=== PATIENT | female | born 1945 | race Caucasian/White ===

== ENCOUNTER → 2021-10-01 11:10 | Outpatient (CLI) | payer MEDICARE, OTHER, SELFPAY ==
[2021-10-01 15:04] LABS: COVID19 -Nasal RAPID Negative (Negative)
== END ==
PROVIDERS: PCP Family Medicine; Referring Provider Ophthalmology; Visit Provider Ophthalmology
DX: Z20.822 Contact with and (suspected) exposure to COVID-19 (principal)
CPT/HCPCS: 87635; C9803

== ENCOUNTER 2021-10-02 10:35 | Day surgery (SDC) | payer MEDICARE, OTHER, SELFPAY ==
[2021-10-02] MEDS: PROPARACAINE 0.5% OPHTH SOL 2 DROPS EYE-OP (10:57)
[2021-10-02] MEDS: CATARACT EYE COMPOUND (10 DROPS/SYRINGE) 3 DROPS EYE-OP (11:03)
[2021-10-02 11:05] VITALS: BP 150/86; PULSE 65; RESP 16; TEMP 35.9; O2SAT 98; BMI 21.9
--- NOTE | 2021-10-02 11:50 | SUR.OPER ---
Supine on eye stretcher, head on extension cradle secured with tape. Arms tucked at sides with blanket. Pillow under knees.
--- NOTE | 2021-10-02 12:01 | P.OP.PRE_ITS ---
Pre-operative Note Interval Note History & Physical reviewed/Exam performed by Physician: Yes Changes to H&P: No Addendum Addendum Note: There are no non surgical alternatives for the patients condition. Deteriora tion of the patients condition is expected without surgery. There is the possibility that delay of surgery will result in more complex future surgery.
--- NOTE | 2021-10-02 12:02 | PM.OP.1 ---
Operative Date/Time/Diagnoses Pre-op diagnosis: Nuclear cataract right eye Procedure & Clinicians Procedure: Cataract Surgery Same procedure as scheduled: Yes Surgeon: Lars Negrete Anesthesia Type: MAC +/- and Sedation Operative Notes Procedure in detail: Patient brought to the operating suite. Tetracaine drops placed in the right eye. Patient was prepped and draped in sterile manner. Wire lid speculum was placed in the eye. Betadine drops were placed on the eye. This was irrigated. Lidocaine jelly was placed on the eye. A paracentesis port was created with a side-port blade. 0.1 mL 1% preservative free lidocaine was injected into the anterior chamber. The anterior chamber was deepened with viscoelastic. 2.6 mm keratome was used to create a temporal clear corneal incision. Cystotome and Utrata forceps were used to create continuous tear capsulorrhexis. Balanced salt solution was used to hydro dissect the nucleus. The phacoemulsification handpiece was inserted and the nucleus was removed using the stop and chop technique. The irrigation aspiration handpiece was inserted and the remaining cortex was removed. Anterior chamber was deepened with viscoelastic. An Davis DIB00 intraocular lens with a power of 19.5 was injected into the capsular bag. Irrigation aspiration handpiece was inserted and the remaining viscoelastic was removed. Incision was hydrated with balanced salt solution and found to be leak free with pressure with Weck-Betsy sponges. 0.1 mL Vigamox injected anterior chamber. 0.3 mL Kenalog 10 mg was injected subconjunctivally. Lid speculum was removed. The patient left the operating room in excellent condition. Complications: none Post-operative Condition: stable Disposition: same day surgery
[2021-10-02] MEDS: LIDOCAINE 2% (GLYDO) 6 ML GEL TOP (12:17)
[2021-10-02] MEDS: TETRACAINE 0.5% OPHTH DROPS 4 ML 2 DROPS EYE-OP (12:17)
[2021-10-02] MEDS: BALANCED SALT IRRIG SOLN NO.2 500 ML, EPINEPHrine 1 MG IRR (12:17)
[2021-10-02] MEDS: TRIAMCINOLONE 50 MG/5 ML VIAL INJ (12:18)
[2021-10-02] MEDS: PHENYLEPHRINE/LIDOCAINE VIAL (OR) 0.2 ML EYE-OP (12:18)
[2021-10-02] MEDS: MOXIFLOXACIN INJ 4 MG/0.8 ML VIAL 0.5 MG EYE-OP (12:18)
[2021-10-02] MEDS: HYALURONATE SODIUM 30 MG-10 MG/ML SYRINGES 1 BOX INTRAOCULA (12:25)
[2021-10-02 12:44] VITALS: BP 148/86; PULSE 66; RESP 16; TEMP 36.2; O2SAT 97
== END 2021-10-02 13:07 | disposition home or self-care (01) ==
PROVIDERS: PCP Family Medicine; Referring Provider Ophthalmology; Visit Provider Ophthalmology
PROC: (CPT 66984; principal; 2021-10-02 12:45)
DX: H25.11 Age-related nuclear cataract, right eye (principal); F03.90 Unspecified dementia, unspecified severity, without behavioral disturbance, psychotic disturbance, mood disturbance, and anxiety; E78.00 Pure hypercholesterolemia, unspecified
CPT/HCPCS: 66984; J0171; J2704; J3010; J3301

== ENCOUNTER → 2021-10-15 12:56 | Outpatient (CLI) | payer MEDICARE, OTHER, SELFPAY ==
[2021-10-15 16:18] LABS: COVID19 -Nasal RAPID Negative (Negative)
== END ==
PROVIDERS: PCP Family Medicine; Referring Provider Family Medicine Sleep Medicine; Visit Provider Family Medicine Sleep Medicine
DX: Z20.822 Contact with and (suspected) exposure to COVID-19 (principal)
CPT/HCPCS: 87635; C9803

== ENCOUNTER 2021-10-16 12:46 | Day surgery (SDC) | payer MEDICARE, OTHER, SELFPAY ==
--- NOTE | 2021-10-16 11:56 | SUR.PHASEII ---
Dr. Gasca back to look at pt, took dressing down stitched an area with the assistances of Chi and Vianney at the bedside.
[2021-10-16] MEDS: PROPARACAINE 0.5% OPHTH SOL 2 DROPS EYE-OP (13:34)
[2021-10-16 13:36] VITALS: BP 150/78; PULSE 59; RESP 16; TEMP 36.9; O2SAT 97; BMI 21.9
[2021-10-16] MEDS: CATARACT EYE COMPOUND (10 DROPS/SYRINGE) 3 DROPS EYE-OP (13:43)
--- NOTE | 2021-10-16 15:10 | P.OP.PRE_ITS ---
Pre-operative Note Interval Note History & Physical reviewed/Exam performed by Physician: Yes Changes to H&P: No Addendum Addendum Note: Non surgical alternatives are not availale for patients condition. Deteriora tion of the patient's condition is expected. Delay may result in more complex future surgery
--- NOTE | 2021-10-16 15:11 | PM.OP.1 ---
Operative Date/Time/Diagnoses Pre-op diagnosis: Nuclear Cataract Left eye Post-op diagnosis: same Procedure & Clinicians Same procedure as scheduled: Yes Surgeon: Lars Negrete Anesthesia Type: MAC +/- and Sedation Operative Notes Procedure in detail: Patient brought to the operating suite. Tetracaine drops placed in the left eye. Patient was prepped and draped in sterile manner. Wire lid speculum was placed in the eye. Betadine drops were placed on the eye. This was irrigated. Lidocaine jelly was placed on the eye. A paracentesis port was created with a side-port blade. 0.1 mL 1% preservative free lidocaine was injected into the anterior chamber. The anterior chamber was deepened with viscoelastic. 2.6 mm keratome was used to create a temporal clear corneal incision. Cystotome and Utrata forceps were used to create continuous tear capsulorrhexis. Balanced salt solution was used to hydro dissect the nucleus. The phacoemulsification handpiece was inserted and the nucleus was removed using the stop and chop technique. The irrigation aspiration handpiece was inserted and the remaining cortex was removed. Anterior chamber was deepened with viscoelastic. An Davis DIB00 intraocular lens with a power of 19.5 was injected into the capsular bag. Irrigation aspiration handpiece was inserted and the remaining viscoelastic was removed. Incision was hydrated with balanced salt solution and found to be leak free with pressure with Weck-Betsy sponges. 0.1 mL Vigamox injected anterior chamber. 0.3 mL Kenalog 10 mg was injected subconjunctivally. Lid speculum was removed. The patient left the operating room in excellent condition. Complications: none Post-operative Condition: stable Disposition: same day surgery
--- NOTE | 2021-10-16 15:16 | SUR.OPER ---
Supine on eye stretcher, head on extension cradle secured with tape. Arms tucked at sides with blanket. Pillow under knees.
[2021-10-16] MEDS: HYALURONATE SODIUM 30 MG-10 MG/ML SYRINGES 1 BOX INTRAOCULA (15:24)
[2021-10-16] MEDS: MOXIFLOXACIN INJ 4 MG/0.8 ML VIAL 0.5 MG EYE-OP (15:24)
[2021-10-16] MEDS: PHENYLEPHRINE/LIDOCAINE VIAL (OR) 0.2 ML EYE-OP (15:25)
[2021-10-16] MEDS: TRIAMCINOLONE 50 MG/5 ML VIAL INJ (15:25)
[2021-10-16] MEDS: TETRACAINE 0.5% OPHTH DROPS 4 ML 2 DROPS EYE-OP (15:26)
[2021-10-16] MEDS: LIDOCAINE 2% (GLYDO) 6 ML GEL TOP (15:28)
[2021-10-16] MEDS: BALANCED SALT IRRIG SOLN NO.2 500 ML, EPINEPHrine 1 MG IRR ×2 (15:30→15:31)
[2021-10-16 15:53] VITALS: BP 123/75; PULSE 70; RESP 16; TEMP 36.6; O2SAT 96
--- NOTE | 2021-10-16 16:09 | SUR.PHASEII ---
10/16/21-0-Pt fully alert and aware-has dementia so questions answered prn. in good spirits. states ready to go home.Patient denies pain/nausea. eye shield cdi.no drainage noted. tolerated fluids. iv out. met criteria for discharge. escorted ambulatory to restroom after dressed. recieved copies of instructions/implant card and tape roll for home. has all belongings on discharge. has purse. to car by wheelchair escort.
== END 2021-10-16 16:13 | disposition home or self-care (01) ==
PROVIDERS: PCP Family Medicine; Referring Provider Ophthalmology; Visit Provider Ophthalmology
PROC: (CPT 66984; principal; 2021-10-16 14:45)
DX: H25.12 Age-related nuclear cataract, left eye (principal); K21.9 Gastro-esophageal reflux disease without esophagitis
CPT/HCPCS: 66984; J0171; J2704; J3301